=== PATIENT | male | born 1945 | race Native Hawaiian/Other Pacific Islander ===

== ENCOUNTER 2018-03-22 12:37 | Observation (INO) | payer MEDICARE ==
--- NOTE | 2018-03-22 13:33 | C.PDOC ---
History Of Present Illness 72 years old male with PMHx of HTN and Chronic Kidney disease (scheduled to start dialysis soon) presents to ED for complaints of shortness of breath associated with light headedness and generalized weakness that began 1 week ago. Patient states symptoms worsened today which prompted the ED visit. Denies chest pain, palpitations, cough, fever, abdominal pain, nausea, vomiting, or diarrhea. PMD: * Jiaro Alanis Time Seen by Provider: 03/22/18 12:47 Chief Complaint (Nursing): Shortness Of Breath History Per: Patient History/Exam Limitations: no limitations Onset/Duration Of Symptoms: Days (7) Current Symptoms Are (Timing): Still Present Current Respiratory Medications: See Home Med List Associated Symptoms: denies: Fever, Chest Pain Recent travel outside of the [place]: No Past Medical History Reviewed: Historical Data, Nursing Documentation, Vital Signs Vital Signs: Last Vital Signs Temp 97.5 F L 03/22/18 12:55 Pulse 73 03/22/18 12:55 Resp 16 03/22/18 12:55 BP 158/79 H 03/22/18 12:55 Pulse Ox 98 03/22/18 12:55 - Medical History PMH: HTN, End Stage Renal Disease Surgical History: No Surg Hx Family History: States: No Known Family Hx - Social History Hx Alcohol Use: No Hx Substance Use: No - Immunization History Hx Tetanus Toxoid Vaccination: Yes Hx Influenza Vaccination: Yes Hx Pneumococcal Vaccination: Yes Review Of Systems Constitutional: Positive for: Weakness (Generalized ) Cardiovascular: Negative for: Chest Pain, Palpitations Respiratory: Positive for: Shortness of Breath. Negative for: Cough Gastrointestinal: Negative for: Nausea, Vomiting, Abdominal Pain, Diarrhea Skin: Negative for: Rash Neurological: Positive for: Other (Lightheadedness ). Negative for: Weakness, Numbness Physical Exam - Physical Exam Appears: Non-toxic, No Acute Distress, Other (Comfortable) Skin: Normal Color, Warm, Dry, No Rash Head: Atraumatic, Normacephalic Eye(s): bilateral: Normal Inspection, PERRL, EOMI Oral Mucosa: Moist Neck: Normal ROM, Supple Chest: Symmetrical, No Tenderness Cardiovascular: Rhythm Regular Respiratory: Rales (Miled at bases bilaterally ), No Rhonchi, No Wheezing Gastrointestinal/Abdominal: Normal Exam, Soft, No Tenderness Extremity: Normal ROM, Pedal Edema (+1 Pitting edema ) Extremity: Bilateral: Normal ROM Pulses: Left Radial: Normal, Right Radial: Normal Neurological/Psych: Oriented x3, Normal Speech (Able to speak in full sentences ), Other (No focal deficits ) Gait: Steady ED Course And Treatment - Laboratory Results Result Diagrams: 03/22/18 13:35 03/22/18 13:35 Interpretation Of ECG: Normal Sinus Rhythm at 76 bpm. Left [place] Deviation. T- wave inversion in 1 & AVL. No acute ST wave changes O2 Sat by Pulse Oximetry: 98 (RA) Pulse Ox Interpretation: Normal - Other Rad CXR X-Ray: Viewed By Me, Read By Radiologist Interpretation: Date of service: 03/22/2018. PROCEDURE: CHEST RADIOGRAPH, 1 VIEW. HISTORY: SOB. COMPARISON: None available. FINDINGS: LUNGS: The lungs are well inflated and clear. PLEURA: No pneumothorax or pleural effusion. CARDIOVASCULAR: The heart is normal in size. No aortic atherosclerotic calcifications present. OSSEOUS STRUCTURES: Within normal limits for the patient's age. VISUALIZED UPPER ABDOMEN: Normal. OTHER FINDI NGS: None. IMPRESSION: No active pulmonary disease. Progress Note: Administered Lasix. Ordered blood gas, blood work, EKG, CXR, and flu AB swab. Patient is Hypervolemic, will speak to his PMD and admit patient. Disposition - Disposition Forms: [employer] (Tajik) - Scribe Statement The provider has reviewed the documentation as recorded by the Scribe Lela Ruelas All medical record entries made by the Scribe were at my direction and personally dictated by me. I have reviewed the chart and agree that the record accurately reflects my personal performance of the history, physical exam, medical decision making, and the department course for this patient. I have also personally directed, reviewed, and agree with the discharge instructions and disposition.
[2018-03-22 13:44] LABS: VENOUS BLOOD GAS BASE EXCESS -1.7 mmol/L (0.0-2.0); VENOUS BLOOD GAS PCO2 38 mmHg (40-60); VENOUS BLOOD GAS PO2 39 mm/Hg (30-55); VENOUS BLOOD PH 7.39 (7.32-7.43)
--- NOTE | 2018-03-22 13:46 | RAD ---
Date of service: 03/22/2018 PROCEDURE: CHEST RADIOGRAPH, 1 VIEW HISTORY: SOB COMPARISON: None available. FINDINGS: LUNGS: The lungs are well inflated and clear. PLEURA: No pneumothorax or pleural effusion. CARDIOVASCULAR: The heart is normal in size. No aortic atherosclerotic calcifications present. OSSEOUS STRUCTURES: Within normal limits for the patient's age. VISUALIZED UPPER ABDOMEN: Normal. OTHER FINDINGS: None. IMPRESSION: No active pulmonary disease.
[2018-03-22 13:49] LABS: BASO # 0.1 K/uL (0.0-0.2); BASO % 0.9 % (0.0-2.0); EOS # 0.4 K/uL (0.0-0.7); HEMOGLOBIN 9.9 g/dL (12.0-18.0); LYMPH # 1.1 K/uL (1.0-4.3); LYMPH % 15.5 % (20.0-40.0); MEAN CELL VOLUME 88.1 fL (80.0-94.0); MEAN CORPUSCULAR HEMOGLOBIN 29.7 pg (27.0-31.0); MEAN CORPUSCULAR HGB CONC 33.7 g/dL (33.0-37.0); MEAN PLATELET VOLUME 8.5 fL (7.2-11.7); MONO # 0.4 K/uL (0.0-0.8); MONO % 6.1 % (0.0-10.0); NEUT % 71.5 % (50.0-75.0); RBC 3.34 Mil/uL (4.40-5.90); RED CELL DISTRIBUTION WIDTH 14.2 % (11.5-14.5); WHITE BLOOD COUNT 6.9 K/uL (4.8-10.8)
[2018-03-22 14:03] LABS: ALB/GLOB RATIO 1.1 (1.0-2.1); ALBUMIN 3.7 g/dL (3.5-5.0); CALCIUM 8.3 mg/dl (8.6-10.4)
[2018-03-22 14:14] LABS: CK-MB 2.08 ng/mL (0.0-3.38); TROPONIN I 0.038 ng/mL (0.00-0.120)
[2018-03-23] MEDS: Insulin Detemir 100 units/ml Vial (Levemir) SC SCH (10:28)
--- NOTE | 2018-03-23 10:44 | CP.PCM.CON ---
History of Present Illness - History of Present Illness History of Present Illness: I was asked to see patient by Dr Carbajal. Patient seen 03/23/18 1015 Patient is a 72 year old male with chronic renal failure, HTN who presents with dsypnea. Patient developed symptoms one day prior to admission. He felt dsypneic at rest as well as chest discomfort. He has known renal failure and will need dialysis. He denies previous cardiac history Review of Systems - Constitutional Constitutional: absent: As Per HPI, Anorexia, Chills, Daytime Sleepiness, E xcessive Sweating, Fatigue, Fever, Frequent Falls, Headache, Increased Appetite, Lethargy, Malaise, Night Sweats, Snoring, Sleep Apnea, Weight Gain, Weight Loss, Weakness, Other - EENT Eyes: absent: As Per HPI, Blind Spots, Blurred Vision, Change in Vision, Dec reased Night Vision, Diplopia, Discharge, Dry Eye, Exophthalmos, Floaters, Irritation, Itchy Eyes, Loss of Peripheral Vision, Pain, Photophobia, Requires Corrective Lenses, Sees Flashes, Spots in Vision, Tunnel Vision, Other Visual Disturbances, Loss of Vision, Other Ears: absent: As Per HPI, Decreased Hearing, Ear Discharge, Ear Pain, Tinnitus, Abnormal Hearing, Disequilibrium, Dizziness, Other Nose/Mouth/Throat: absent: As Per HPI, Epistaxis, Nasal Congestion, Nasal Discharge, Nasal Obstruction, Nasal Trauma, Nose Pain, Post Nasal Drip, Sinus Pain, Sinus Pressure, Bleeding Gums, Change in Voice, Dental Pain, Dry Mouth, Dysphagia, Halitosis, Hoarsness, Lip Swelling, Mouth Lesions, Mouth Pain, Odynophagia, Sore Throat, Throat Swelling, Tongue Swelling, Facial Pain, Neck Pain, Neck Mass, Other - Cardiovascular Cardiovascular: Dyspnea, Pedal Edema - Respiratory Respiratory: Dyspnea - Gastrointestinal Gastrointestinal: absent: As Per HPI, Abdominal Pain, Belching, Bloating, Change in Bowel Habits, Change in Stool Character, Coffee Ground Emesis, Constipation, Cramping, Diarrhea, Dyspepsia, Dysphagia, Early Satiety, Excessive Flatus, Fecal Incontinence, Heartburn, Hematemesis, Hematochezia, Loose Stools, Melena, Nause a, Odynophagia, Temesmus, Vomiting, Other - Genitourinary Genitourinary: absent: As Per HPI, Change in Urinary Stream, Difficulty Urinating, Dysuria, Flank Pain, Hematuria, Pyuria, Nocturia, Urinary Incontinence, Urinary Frequency, Urinary Hesitance, Urinary Urgency, Voiding Freq/Small Amts, Freq UTI, Hx Renal/Bladder Calculi, Hx /Renal Surgery, Bladder Distension, Other - Musculoskeletal Musculoskeletal: absent: As Per HPI, Abnormal Gait, Arthralgias, Atrophy, Back Pain, Deformity, Joint Swelling, Limited Range of Motion, Loss of Height, Muscle Cramps, Muscle Weakness, Myalgias, Neck Pain, Numbness, Radiating Pain into Limb, Stiffness, Tingling, Other - Integumentary Integumentary: absent: As Per HPI, Acne, Alopecia, Bleeding Lesions, Change in Hair, Change in Nails, Change in Pigmentation, Changing Lesions, Dry Skin, Erythema, Furuncle, Hirsutism, Lesions, New Lesions, Non-Healing Lesions, Photosensitivity, Pruritus, Rash, Skin Pain, Skin Ulcer, Sores, Striae, Swel ling, Unusual Bruising, Wounds, Jaundice, Other - Neurological Neurological: absent: As Per HPI, Abnormal Gait, Abnormal Hearing, Abnormal Movements, Abnormal Speech, Behavioral Changes, Burning Sensations, Confusion, Convulsions, Disequilibrium, Dizziness, Numbness, Focal Weakness, Frequent Falls, Headaches, Lack of Coordination, Loss of Vision, Memory Loss, Paresthesias, Radicular Pain, Restless Legs, Sensory Deficit, Syncope, Tingling, Tremor, Vertigo, Weakness, Other Visual Disturbances, Other - Psychiatric Psychiatric: absent: As Per HPI, Abnormal Sleep Pattern, Anhedonia, Anxiety, Auditory Hallucinations, Behavioral Changes, Change in Appetite, Change in Libido, Confusion, Depression, Difficulty Concentrating, Hallucinations, Homicidal Ideation, Hopelessness, Irritability, Memory Loss, Mood Swings, Panic Attacks, Paranoia, Suicidal Ideation, Visual Hallucinations, Tactile Hallucinations, Other - Endocrine Endocrine: absent: As Per HPI, Change in Body Appearance, Change in Libido, Cold Intolorance, Deepening of Voice, Excessive Sweating, Fatigue, Flushing, Heat Intolorance, Increase in Ring/Shoe/Hat Size, Palpitations, Polydipsia, Polyphagia, Polyuria, Other - Hematologic/Lymphatic Hematologic: absent: As Per HPI, Easy Bleeding, Easy Bruising, Lymphadenopathy, Other Past Patient History - Infectious Disease Hx of Infectious Diseases: None - Past Social History Smoking Status: Former Smoker - CARDIAC Hx Hypertension: Yes - RENAL Type of Dialysis Access: right av shunt - ENDOCRINE/METABOLIC Hx Diabetes Mellitus Type 2: Yes - PSYCHIATRIC Hx Substance Use: No - SURGICAL HISTORY Hx Vascular Access Device: Yes - ANESTHESIA Hx Anesthesia: Yes Hx Anesthesia Reactions: No Hx Malignant Hyperthermia: No Meds Allergies/Adverse Reactions: Allergies Allergy/AdvReac Type Severity Reaction Status Date / Time No Known Allergies Allergy Verified 03/22/18 13:18 - Medications Medications: Current Medications Amlodipine Besylate (Norvasc) 10 mg PO DAILY [facility] Last Admin: 03/23/18 10:27 Dose: 10 mg Carvedilol (Coreg) 6.25 mg PO BID [facility] Last Admin: 03/23/18 10:28 Dose: 6.25 mg Heparin Sodium (Porcine) (Heparin) 5,000 units SC Q12 [facility] Last Admin: 03/23/18 10:28 Dose: 5,000 units Insulin Detemir (Levemir) 20 unit SC DAILY [facility] Last Admin: 03/23/18 10:28 Dose: 20 u Rosuvastatin Calcium (Crestor) 10 mg PO HS [facility] Last Admin: 03/23/18 00:05 Dose: 10 mg Physical Exam - Constitutional Appears: Non-toxic - Head Exam Head Exam: NORMAL INSPECTION - Eye Exam Eye Exam: Normal appearance - ENT Exam ENT Exam: Mucous Membranes Moist - Neck Exam Neck exam: Positive for: Full Rom - Respiratory Exam Respiratory Exam: Decreased Breath Sounds - Cardiovascular Exam Cardiovascular Exam: REGULAR RHYTHM, Systolic Murmur - GI/Abdominal Exam GI & Abdominal Exam: Normal Bowel Sounds - Rectal Exam Rectal Exam: Deferred - Extremities Exam Extremities exam: Positive for: pedal edema - Back Exam Back exam: NORMAL INSPECTION - Neurological Exam Neurological exam: Alert, Oriented x3 - Psychiatric Exam Psychiatric exam: Normal Affect - Skin Skin Exam: Normal Color Results - Vital Signs Recent Vital Signs: Last Vital Signs Temp 98.1 F 03/23/18 07:00 Pulse 84 03/23/18 07:00 Resp 18 03/23/18 07:00 BP 161/79 H 03/23/18 07:00 Pulse Ox 100 03/23/18 07:00 - Labs Result Diagrams: 03/22/18 13:35 03/22/18 13:35 Labs: Laboratory Results - last 24 hr 03/22/18 03/22/18 03/22/18 12:53 13:35 13:35 WBC 6.9 RBC 3.34 L Hgb 9.9 L Hct 29.4 L MCV 88.1 MCH 29.7 MCHC 33.7 RDW 14.2 Plt Count 244 MPV 8.5 Neut % (Auto) 71.5 Lymph % (Auto) 15.5 L [place] % (Auto) 6.1 Eos % (Auto) 6.0 H Baso % (Auto) 0.9 Neut # (Auto) 5.0 Lymph # (Auto) 1.1 [place] # (Auto) 0.4 Eos # (Auto) 0.4 Baso # (Auto) 0.1 pO2 VBG pH VBG pCO2 VBG HCO3 VBG Total CO2 VBG O2 Sat (Calc) VBG Base Excess VBG Potassium Glucose Lactate Sodium 137 Potassium 3.8 Chloride 98 Carbon Dioxide 28 Anion Gap 15 BUN 54 H Creatinine 4.6 H Est GFR ( Amer) 15 Est GFR (Non-Af Amer) 13 POC Glucose (mg/dL) 157 H Random Glucose 157 H Calcium 8.3 L Total Bilirubin 0.3 AST 24 ALT 28 Alkaline Phosphatase 66 Total Creatine Kinase 147 CK-MB (Mass) 2.08 Troponin I 0.0380 NT-Pro-B Natriuret Pep 8210 H Total Protein 7.1 Albumin 3.7 Globulin 3.4 Albumin/Globulin Ratio 1.1 Venous Blood Potassium Influenza Typ A,B (EIA) 03/22/18 03/22/18 03/22/18 13:38 14:01 17:11 WBC RBC Hgb Hct MCV MCH MCHC RDW Plt Count MPV Neut % (Auto) Lymph % (Auto) [place] % (Auto) Eos % (Auto) Baso % (Auto) Neut # (Auto) Lymph # (Auto) [place] # (Auto) Eos # (Auto) Baso # (Auto) pO2 39 VBG pH 7.39 VBG pCO2 38 L VBG HCO3 22.9 VBG Total CO2 24.2 VBG O2 Sat (Calc) 85.4 H VBG Base Excess -1.7 L VBG Potassium 3.2 L Glucose 144 H Lactate 0.8 Sodium 144.0 Potassium Chloride 109.0 H Carbon Dioxide Anion Gap BUN Creatinine Est GFR ( Amer) Est GFR (Non-Af Amer) POC Glucose (mg/dL) 177 H Random Glucose Calcium Total Bilirubin AST ALT Alkaline Phosphatase Total Creatine Kinase CK-MB (Mass) Troponin I NT-Pro-B Natriuret Pep Total Protein Albumin Globulin Albumin/Globulin Ratio Venous Blood Potassium 3.2 L Influenza Typ A,B (EIA) Negative for flu a/b 03/22/18 03/22/18 03/23/18 19:32 20:59 07:10 WBC RBC Hgb Hct MCV MCH MCHC RDW Plt Count MPV Neut % (Auto) Lymph % (Auto) [place] % (Auto) Eos % (Auto) Baso % (Auto) Neut # (Auto) Lymph # (Auto) [place] # (Auto) Eos # (Auto) Baso # (Auto) pO2 VBG pH VBG pCO2 VBG HCO3 VBG Total CO2 VBG O2 Sat (Calc) VBG Base Excess VBG Potassium Glucose Lactate Sodium Potassium Chloride Carbon Dioxide Anion Gap BUN Creatinine Est GFR ( Amer) Est GFR (Non-Af Amer) POC Glucose (mg/dL) 276 H 306 H 210 H Random Glucose Calcium Total Bilirubin AST ALT Alkaline Phosphatase Total Creatine Kinase CK-MB (Mass) Troponin I NT-Pro-B Natriuret Pep Total Protein Albumin Globulin Albumin/Globulin Ratio Venous Blood Potassium Influenza Typ A,B (EIA) - EKG Data EKG Interpreted by: Myself EKG shows normal: Sinus rhythm Assessment & Plan (1) Aortic stenosis Assessment and Plan: patient has physical exam consistent with aortic stenosis. This may contribute to the patient's symptoms. will schedule echocardiogram Status: Acute (2) HTN (hypertension) Assessment and Plan: blood pressure control. avoid afterload reduction Status: Acute
--- NOTE | 2018-03-23 15:29 | CP.PCM.HP ---
History of Present Illness - History of Present Illness History of Present Illness: CC: Shorthness of breath HPI: 72 years old male h/o renal failure, Diabetes, HTN, S/p CVA, seen in ER c/o SOB and chest discomfort. Also c/o cough. No fever. Present on Admission - Present on Admission Any Indicators Present on Admission: Yes History of DVT/PE: No History of Uncontrolled Diabetes: Yes Urinary Catheter: No Decubitus Ulcer Present: No Review of Systems - Review of Systems Systems not reviewed;Unavailable: Respiratory Distress All systems: reviewed and no additional remarkable complaints except (SOB, Chestpain, Tinnitus, Muscle spasm) Past Patient History - Infectious Disease Hx of Infectious Diseases: None - Tetanus Immunizations Tetanus Immunization: Unknown - Past Medical History & Family History Past Medical History?: Yes - Past Social History Smoking Status: Former Smoker - CARDIAC Hx Hypertension: Yes - RENAL Type of Dialysis Access: right av shunt - ENDOCRINE/METABOLIC Hx Diabetes Mellitus Type 2: Yes - PSYCHIATRIC Hx Substance Use: No - SURGICAL HISTORY Hx Vascular Access Device: Yes - ANESTHESIA Hx Anesthesia: Yes Hx Anesthesia Reactions: No Hx Malignant Hyperthermia: No Meds Allergies/Adverse Reactions: Allergies Allergy/AdvReac Type Severity Reaction Status Date / Time No Known Allergies Allergy Verified 03/22/18 13:18 Physical Exam - Constitutional Appears: Chronically Ill - Head Exam Head Exam: NORMAL INSPECTION - Eye Exam Eye Exam: Normal appearance - ENT Exam ENT Exam: Normal Exam - Neck Exam Neck exam: Positive for: Normal Inspection - Respiratory Exam Respiratory Exam: Decreased Breath Sounds - Cardiovascular Exam Cardiovascular Exam: REGULAR RHYTHM, Systolic Murmur - GI/Abdominal Exam GI & Abdominal Exam: Soft - Rectal Exam Rectal Exam: Deferred - Extremities Exam Extremities exam: Negative for: pedal edema - Back Exam Back exam: NORMAL INSPECTION - Neurological Exam Neurological exam: Alert - Psychiatric Exam Psychiatric exam: Anxious - Skin Skin Exam: Dry Results - Vital Signs Recent Vital Signs: Last Vital Signs Temp 98.1 F 03/23/18 07:00 Pulse 84 03/23/18 07:00 Resp 18 03/23/18 07:00 BP 161/79 H 03/23/18 07:00 Pulse Ox 100 03/23/18 07:00 - Labs Result Diagrams: 03/22/18 13:35 03/22/18 13:35 Labs: Laboratory Results - last 24 hr 03/22/18 03/22/18 03/22/18 17:11 19:32 20:59 POC Glucose (mg/dL) 177 H 276 H 306 H 03/23/18 03/23/18 07:10 11:42 POC Glucose (mg/dL) 210 H 302 H Assessment & Plan (1) Dyspnea Status: Acute (2) Diabetes Status: Chronic (3) HTN (hypertension) Status: Chronic (4) CVA, old, hemiparesis Status: Chronic (5) Murmur, cardiac Status: Chronic (6) Anemia Status: Chronic (7) CKD (chronic kidney disease) stage 5, GFR less than 15 ml/min Status: Acute (8) CKD (chronic kidney disease) stage 4, GFR 15-29 ml/min Status: Chronic - Assessment and Plan (Free Text) Assessment: A/P: continue medication. Appreciated Cardiology notes. Renal consult
--- NOTE | 2018-03-23 16:26 | CP.PCM.CON ---
History of Present Illness - History of Present Illness History of Present Illness: pt is seen and examined, full consult is dictated #[id number] Past Patient History - Infectious Disease Hx of Infectious Diseases: None - Tetanus Immunizations Tetanus Immunization: Unknown - Past Medical History & Family History Past Medical History?: Yes - Past Social History Smoking Status: Former Smoker - CARDIAC Hx Hypertension: Yes - RENAL Type of Dialysis Access: right av shunt - ENDOCRINE/METABOLIC Hx Diabetes Mellitus Type 2: Yes - PSYCHIATRIC Hx Substance Use: No - SURGICAL HISTORY Hx Vascular Access Device: Yes - ANESTHESIA Hx Anesthesia: Yes Hx Anesthesia Reactions: No Hx Malignant Hyperthermia: No Meds Allergies/Adverse Reactions: Allergies Allergy/AdvReac Type Severity Reaction Status Date / Time No Known Allergies Allergy Verified 03/22/18 13:18 - Medications Medications: Current Medications Amlodipine Besylate (Norvasc) 10 mg PO DAILY [facility] Last Admin: 03/23/18 10:27 Dose: 10 mg Carvedilol (Coreg) 6.25 mg PO BID [facility] Last Admin: 03/23/18 10:28 Dose: 6.25 mg Diazepam (Valium) 5 mg PO HS PRN PRN Reason: Anxiety Heparin Sodium (Porcine) (Heparin) 5,000 units SC Q12 [facility] Last Admin: 03/23/18 10:28 Dose: 5,000 units Insulin Detemir (Levemir) 20 unit SC DAILY [facility] Last Admin: 03/23/18 10:28 Dose: 20 u Rosuvastatin Calcium (Crestor) 10 mg PO HS [facility] Last Admin: 03/23/18 00:05 Dose: 10 mg Results - Vital Signs Recent Vital Signs: Last Vital Signs Temp 98.1 F 03/23/18 07:00 Pulse 84 03/23/18 07:00 Resp 18 03/23/18 07:00 BP 161/79 H 03/23/18 07:00 Pulse Ox 100 03/23/18 07:00 - Labs Result Diagrams: 03/22/18 13:35 03/22/18 13:35 Labs: Laboratory Results - last 24 hr 03/22/18 03/22/18 03/22/18 17:11 19:32 20:59 POC Glucose (mg/dL) 177 H 276 H 306 H 03/23/18 03/23/18 07:10 11:42 POC Glucose (mg/dL) 210 H 302 H
[2018-03-23] MEDS ORDERED: Aluminum Hydroxide/Magnesium Hydroxide Susp (30 mL) PO ONE (18:22)
[2018-03-23 18:44] VITALS: RESP 20
--- NOTE | 2018-03-24 02:06 | CON ---
DATE: 03/23/2018 RENAL CONSULTATION LOCATION: The patient is located in room 671, bed A. REQUESTED BY: Jairo Carbajal MD REASON FOR CONSULT: CKD V for further evaluation. HISTORY OF PRESENT ILLNESS: Mr. Cisneros is a 72-year-old elderly Citizen Of The [place] male with a past medical history of longstanding hypertension, diabetes, chronic kidney disease, CVA with right-sided weakness, status post right upper extremity AV fistula about few months ago, was admitted through the emergency room with the chief complaints of shortness of breath associated with lightheadedness and generalized weakness and pain in the right shoulder for about few days. Denies any chest pain or palpitation. Denies any fever or cough. Denies any abdominal pain. Denies any nausea, vomiting, or diarrhea. Denies any swelling of the legs. PAST MEDICAL HISTORY: Significant for longstanding hypertension, diabetes, chronic kidney disease stage V, hyperlipidemia, and CVA with right-sided weakness. 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 ALLERGIES: NO KNOWN DRUG ALLERGIES. SOCIAL HISTORY: No smoking at this time, ex-smoker, quit more than 10 years ago. Social alcohol use, once or twice a year, and no drug abuse. PERSONAL HISTORY: He is , and he has a very supportive family. MEDICATIONS: His current medications include as follows: Ambien 5 mg at bedtime, Coreg 6.25 mg p.o. b.i.d., Crestor 10 mg at bedtime, subcutaneously heparin 5000 units every 12 hours, Levemir 20 units subcutaneously daily, Norvasc 10 mg daily, Tylenol 650 mg p.o. t.i.d., and diazepam/Valium 5 mg p.o. at bedtime p.r.n. REVIEW OF SYSTEMS: Significant for shortness of breath and occasional cough and generalized body aches and right shoulder pain. All other review of systems are reviewed and are negative. PHYSICAL EXAMINATION: VITAL SIGNS: As follows: Blood pressure 152/74, pulse 77, respirations 20, temperature 98.3, and saturation 100%. Height 5 feet 2 inches, weight is 160 pounds. GENERAL: Mr. Cisneros is a 72-year-old elderly male, moderately built, moderately nourished, not in acute distress. HEENT: Pupils normal, reactive to light and accommodation. Conjunctivae pink. Sclerae anicteric. Tongue is moist. Trachea is midline. LUNGS: Symmetric on both sides. Bilateral breath sounds present. Clear to auscultation. CARDIOVASCULAR SYSTEM: [place] at the fifth intercostal space and midclavicular line. S1, S2 audible. No murmur or gallop. ABDOMEN: Normal in appearance. Soft, tympanic. No guarding. No rigidity. No hepatosplenomegaly. CENTRAL NERVOUS SYSTEM: The patient is alert, awake, oriented x3. Sensory and motor system is grossly within normal limits. EXTREMITIES: No cyanosis, no clubbing, no edema. The patient has a very slight weakness on the right side. Power 4-5/5 in both her right upper extremity and lower extremity. LABORATORY DATA: Includes as follows: As of 03/22/2018: WBC 6.9, hemoglobin 9.9, hematocrit is 29.4, platelets 244. ABG: PH 7.39, pO2 39, pCO2 38, and bicarb 22.9, saturation 85. Sodium 137, potassium 3.8, chloride 98, CO 28, BUN 54, creatinine 4.6, glucose 157, calcium 8.3. Total bili 0.3, AST 24, ALT 28, alkaline phosphatase 66. CPK 147, CK-MB 2, troponin 0.03, and proBNP 8210, total protein 7, albumin 3.7. Influenza A and B are negative. Chest x-ray, no active disease. ASSESSMENT: In summary, Mr. Cisneros is a 72-year-old elderly Citizen Of [place] male with history of longstanding hypertension, diabetes, hyperlipidemia, congestive heart failure, chronic kidney disease stage V, cerebrovascular accident with right-sided weakness, status post right upper extremity arteriovenous fistula. 1. Chronic kidney disease stage V, most likely secondary to hypertensive nephrosclerosis, cannot rule out underlying diabetic nephropathy. 2. Hypertension. 3. Diabetes. 4. Cerebrovascular accident with right-sided weakness, old, very minimal, status post right upper extremity arteriovenous fistula. 5. Shortness of breath, rule out congestive heart failure, rule out the upper respiratory tract infection symptoms. PLAN: Continue his current medications, and no need for emergency hemodialysis at this time. Advised the patient to do the exercise with right upper extremity for fistula maturation. The patient may need angioplasty. Consider vascular surgery evaluation and Doppler of the right upper extremity, and check phosphorus and PTH intact level and also iron, TIBC, ferritin. Thank you for allowing me to participate in your patient's care. Discussed with the patient's family at bedside. Jack Lopez MD
--- NOTE | 2018-03-24 07:49 | CP.PCM.PN ---
Subjective - Date & Time of Evaluation Date of Evaluation: 03/24/18 Time of Evaluation: 07:35 - Subjective Subjective: patient has less dyspnea. Objective - Vital Signs/Intake and Output Vital Signs (last 24 hours): Temp Pulse Resp BP Pulse Ox 98.0 F 71 20 157/79 H 99 03/24/18 04:00 03/24/18 04:00 03/24/18 04:00 03/24/18 04:00 03/24/18 04:00 Intake and Output: 03/24/18 03/24/18 06:59 18:59 Intake Total 450 Output Total 475 Balance -25 - Medications Medications: Current Medications Acetaminophen (Tylenol 325mg Tab) 650 mg PO TID PRN PRN Reason: Pain, Mild (1-3) Last Admin: 03/23/18 17:49 Dose: 650 mg Amlodipine Besylate (Norvasc) 10 mg PO DAILY [facility] Last Admin: 03/23/18 10:27 Dose: 10 mg Diazepam (Valium) 5 mg PO HS PRN PRN Reason: Anxiety Last Admin: 03/23/18 17:49 Dose: 5 mg Heparin Sodium (Porcine) (Heparin) 5,000 units SC Q12 [facility] Last Admin: 03/23/18 22:30 Dose: 5,000 units Insulin Detemir (Levemir) 20 unit SC DAILY [facility] Last Admin: 03/23/18 10:28 Dose: 20 u Rosuvastatin Calcium (Crestor) 10 mg PO HS [facility] Last Admin: 03/23/18 22:30 Dose: 10 mg Zolpidem Tartrate (Ambien) 5 mg PO HS PRN PRN Reason: Insomnia Last Admin: 03/23/18 22:30 Dose: 5 mg - Labs Labs: 03/22/18 13:35 03/22/18 13:35 - Constitutional Appears: Non-toxic - Head Exam Head Exam: NORMAL INSPECTION - Eye Exam Eye Exam: Normal appearance - ENT Exam ENT Exam: Mucous Membranes Moist - Neck Exam Neck Exam: Full ROM - Respiratory Exam Respiratory Exam: NORMAL BREATHING PATTERN - Cardiovascular Exam Cardiovascular Exam: REGULAR RHYTHM, Murmur Additional comments: crescendo systolic murmur - GI/Abdominal Exam GI & Abdominal Exam: Normal Bowel Sounds - Rectal Exam Rectal Exam: Deferred - Extremities Exam Extremities Exam: Normal Inspection - Back Exam Back Exam: NORMAL INSPECTION - Neurological Exam Neurological Exam: Alert - Psychiatric Exam Psychiatric exam: Normal Affect - Skin Skin Exam: Normal Color Assessment and Plan (1) Aortic stenosis Assessment & Plan: I reviewed the echocardiogram. The left ventriuclar function is preserved. There is moderate aortic valve stenosis. There i no immediate indication for surgery. He is at risk for CAD, and would likely benefit from eventual cardiac catheterization. However I would not recommend cardiac catheterization unless dialysis is performed, as the contrast will cause progressive renal failure. Status: Acute (2) HTN (hypertension) Assessment & Plan: increase Coreg Status: Acute
[2018-03-24] MEDS: Insulin Detemir 100 units/ml Vial (Levemir) SC SCH (10:13)
--- NOTE | 2018-03-24 11:40 | CP.PCM.PN ---
Subjective - Date & Time of Evaluation Date of Evaluation: 03/24/18 Time of Evaluation: 11:37 - Subjective Subjective: S: Feels better. No chest pain, fevre, SOB. s/p cardiac cath 2 years ago [facility] Objective - Vital Signs/Intake and Output Vital Signs (last 24 hours): Temp Pulse Resp BP Pulse Ox 98.1 F 76 20 160/81 H 100 03/24/18 07:00 03/24/18 07:00 03/24/18 07:00 03/24/18 07:00 03/24/18 07:00 Intake and Output: 03/24/18 03/24/18 06:59 18:59 Intake Total 450 Output Total 475 Balance -25 - Medications Medications: Current Medications Acetaminophen (Tylenol 325mg Tab) 650 mg PO TID PRN PRN Reason: Pain, Mild (1-3) Last Admin: 03/23/18 17:49 Dose: 650 mg Amlodipine Besylate (Norvasc) 10 mg PO DAILY [facility] Last Admin: 03/24/18 10:14 Dose: 10 mg Carvedilol (Coreg) 12.5 mg PO BID [facility] Last Admin: 03/24/18 10:14 Dose: 12.5 mg Diazepam (Valium) 5 mg PO HS PRN PRN Reason: Anxiety Last Admin: 03/23/18 17:49 Dose: 5 mg Heparin Sodium (Porcine) (Heparin) 5,000 units SC Q12 [facility] Last Admin: 03/24/18 10:15 Dose: 5,000 units Insulin Detemir (Levemir) 20 unit SC DAILY [facility] Last Admin: 03/24/18 10:13 Dose: 20 u Rosuvastatin Calcium (Crestor) 10 mg PO HS [facility] Last Admin: 03/23/18 22:30 Dose: 10 mg Zolpidem Tartrate (Ambien) 5 mg PO HS PRN PRN Reason: Insomnia Last Admin: 03/23/18 22:30 Dose: 5 mg - Labs Labs: 03/22/18 13:35 03/22/18 13:35 - Constitutional Appears: Chronically Ill - Head Exam Head Exam: NORMAL INSPECTION - Eye Exam Eye Exam: Normal appearance - ENT Exam ENT Exam: Normal Exam - Respiratory Exam Respiratory Exam: NORMAL BREATHING PATTERN - Cardiovascular Exam Cardiovascular Exam: REGULAR RHYTHM, Murmur - GI/Abdominal Exam GI & Abdominal Exam: Soft - Rectal Exam Rectal Exam: Deferred - Extremities Exam Extremities Exam: Tenderness (weakness noted) - Back Exam Back Exam: NORMAL INSPECTION - Neurological Exam Neurological Exam: Awake Assessment and Plan (1) Dyspnea Status: Acute (2) Diabetes Status: Chronic (3) HTN (hypertension) Status: Chronic (4) CVA, old, hemiparesis Status: Chronic (5) Murmur, cardiac Status: Chronic (6) Anemia Status: Chronic (7) CKD (chronic kidney disease) stage 5, GFR less than 15 ml/min Status: Acute (8) CKD (chronic kidney disease) stage 4, GFR 15-29 ml/min Status: Chronic - Assessment and Plan (Free Text) Assessment: A/P: Continue medications. Old chart [facility] requested
--- NOTE | 2018-03-24 17:18 | CP.PCM.PN ---
Subjective - Date & Time of Evaluation Date of Evaluation: 03/24/18 Time of Evaluation: 17:18 - Subjective Subjective: pt is seen and examined, follow up consult is dictated #[id number] Objective - Vital Signs/Intake and Output Vital Signs (last 24 hours): Temp Pulse Resp BP Pulse Ox 98.1 F 77 20 160/81 H 100 03/24/18 07:00 03/24/18 07:45 03/24/18 07:00 03/24/18 07:00 03/24/18 11:45 Intake and Output: 03/24/18 03/24/18 06:59 18:59 Intake Total 450 Output Total 475 1250 Balance -25 -1250 - Medications Medications: Current Medications Acetaminophen (Tylenol 325mg Tab) 650 mg PO TID PRN PRN Reason: Pain, Mild (1-3) Last Admin: 03/23/18 17:49 Dose: 650 mg Amlodipine Besylate (Norvasc) 10 mg PO DAILY [facility] Last Admin: 03/24/18 10:14 Dose: 10 mg Carvedilol (Coreg) 12.5 mg PO BID [facility] Last Admin: 03/24/18 10:14 Dose: 12.5 mg Diazepam (Valium) 5 mg PO HS PRN PRN Reason: Anxiety Last Admin: 03/23/18 17:49 Dose: 5 mg Heparin Sodium (Porcine) (Heparin) 5,000 units SC Q12 [facility] Last Admin: 03/24/18 10:15 Dose: 5,000 units Insulin Detemir (Levemir) 20 unit SC DAILY [facility] Last Admin: 03/24/18 10:13 Dose: 20 u Rosuvastatin Calcium (Crestor) 10 mg PO HS [facility] Last Admin: 03/23/18 22:30 Dose: 10 mg Zolpidem Tartrate (Ambien) 5 mg PO HS PRN PRN Reason: Insomnia Last Admin: 03/23/18 22:30 Dose: 5 mg - Labs Labs: 03/22/18 13:35 03/22/18 13:35
[2018-03-24] MEDS: (Novolog) Insulin Aspart, Recombinant 100 u/ml 10 ml vial SC SCH (21:42)
--- NOTE | 2018-03-24 21:54 | PN ---
DATE: 03/24/2018 LOCATION: Room 671, bed A. REQUESTED BY: Jairo Carbajal MD REASON FOR FOLLOWUP: CKD V for further evaluation. HISTORY OF PRESENT ILLNESS: Mr. Cisneros is a 72-year-old elderly, very pleasant [place] male with a history of longstanding hypertension, diabetes, hyperlipidemia, CVA with right-sided weakness, chronic kidney disease, status post right upper extremity AV fistula placement who was admitted with chief complaints of shortness of breath and right shoulder pain and occasional chest discomfort. Denies any dysuria or frequency. Denies any nausea, vomiting, diarrhea. Denies any swelling of the legs. The patient is feeling much better, not in acute distress at this time. PHYSICAL EXAMINATION: GENERAL: Mr. Cisneros is a 72-year-old elderly male, moderately built, moderately nourished, not in acute distress. VITAL SIGNS: As follows: Blood pressure 155/77, pulse 99, respiration 90, temperature 98.9, saturation 100%. Height 5 feet 2 inches, weight is 160 pounds. HEENT: Pupils normal, reactive to light and accommodation. Conjunctivae pink. Sclerae anicteric. Tongue is moist. Trachea is midline. LUNGS: Symmetric on both sides. Bilateral breath sounds present. Clear to auscultation. CARDIOVASCULAR SYSTEM: [place] at the fifth intercostal space, midclavicular area. S1 and S2 audible. No murmur or gallop. ABDOMEN: Normal in appearance, soft, tympanic. No guarding. No rigidity. No hepatosplenomegaly. CENTRAL NERVOUS SYSTEM: The patient is alert, awake, oriented x3. Sensory and motor system is within normal limits. EXTREMITIES: No cyanosis, no clubbing, no edema. Mild right-sided weakness. Right upper extremity AV fistula with good bruit but still the AV fistula is immature. MEDICATIONS: His current medications include as follows: Ambien 5 mg at bedtime, Coreg 12.5 mg p.o. b.i.d., Crestor 10 mg at p.o. at bedtime, subcu heparin 5000 units every 12 hours, Levemir 20 units subcu daily, Norvasc 10 mg daily, Tylenol 650 mg p.o. t.i.d. and Valium 5 mg p.o. at bedtime. LABORATORY DATA: No new labs are available. Accu-Cheks 170 and 226. ASSESSMENT: In summary, Mr. Cisneros is 72-year-old male, elderly male, moderately built, moderately nourished, with hypertension, diabetes, cerebrovascular accident with right-sided weakness, chronic kidney disease stage V. 1. Chronic kidney disease, V, most likely secondary to diabetic nephropathy, cannot rule out underlying hypertensive nephrosclerosis. 2. Hypertension. 3. Diabetes. 4. Old cerebrovascular accident with right-sided weakness, very mild. PLAN: Continue his current medication, antihypertensive medication. We will check phosphorus, PTH intact level and BMP in a.m. and we will add Nephrocaps 1 tablet p.o. daily and we will follow up with you. Thank you for allowing me to participate in your patient's care. Jack Lopez MD
[2018-03-25 07:55] LABS: ALB/GLOB RATIO 0.9 (1.0-2.1); ALBUMIN 3.1 g/dL (3.5-5.0); CALCIUM 7.8 mg/dl (8.6-10.4)
[2018-03-25] MEDS ORDERED: Multivitamin Vitamin B Complex (Nephro-Vite) Tab PO SCH (08:00)
--- NOTE | 2018-03-25 08:01 | CP.PCM.PN ---
Subjective - Date & Time of Evaluation Date of Evaluation: 03/25/18 Time of Evaluation: 07:40 - Subjective Subjective: Pt feels well; no more sensation fo going to fall vertigo. No more chest pain, no fatigue, no edema; good urine out put Objective - Vital Signs/Intake and Output Vital Signs (last 24 hours): Temp Pulse Resp BP Pulse Ox 98 F 72 20 149/72 95 03/24/18 23:50 03/25/18 01:02 03/24/18 23:50 03/24/18 23:50 03/24/18 23:50 Intake and Output: 03/25/18 03/25/18 06:59 18:59 Output Total 1200 Balance -1200 - Medications Medications: Current Medications Acetaminophen (Tylenol 325mg Tab) 650 mg PO TID PRN PRN Reason: Pain, Mild (1-3) Last Admin: 03/23/18 17:49 Dose: 650 mg Amlodipine Besylate (Norvasc) 10 mg PO DAILY [facility] Last Admin: 03/24/18 10:14 Dose: 10 mg Carvedilol (Coreg) 12.5 mg PO BID [facility] Last Admin: 03/24/18 19:44 Dose: 12.5 mg Diazepam (Valium) 5 mg PO HS PRN PRN Reason: Anxiety Last Admin: 03/23/18 17:49 Dose: 5 mg Heparin Sodium (Porcine) (Heparin) 5,000 units SC Q12 [facility] Last Admin: 03/24/18 21:42 Dose: 5,000 units Insulin Aspart (Novolog) 0 unit SC ACHS [facility]; Protocol Last Admin: 03/24/18 21:42 Dose: 2 units Insulin Detemir (Levemir) 20 unit SC DAILY [facility] Last Admin: 03/24/18 10:13 Dose: 20 u Rosuvastatin Calcium (Crestor) 10 mg PO HS [facility] Last Admin: 03/24/18 21:41 Dose: 10 mg Vitamin B Complex/Vit C/Folic Acid (Nephro-Kimi) 1 tab PO 0800 [facility] Zolpidem Tartrate (Ambien) 5 mg PO HS PRN PRN Reason: Insomnia Last Admin: 03/24/18 21:42 Dose: 5 mg - Labs Labs: 03/22/18 13:35 03/25/18 07:30 - Constitutional Appears: No Acute Distress - Eye Exam Eye Exam: Normal appearance - ENT Exam ENT Exam: Mucous Membranes Moist - Neck Exam Neck Exam: Full ROM. absent: Lymphadenopathy, Normal Inspection, Tenderness - Respiratory Exam Respiratory Exam: Clear to Ausculation Bilateral. absent: Rales, Rhonchi, Wheezes - Cardiovascular Exam Cardiovascular Exam: REGULAR RHYTHM, +S1, +S2. absent: Gallop, JVD - GI/Abdominal Exam GI & Abdominal Exam: Soft. absent: Guarding, Tenderness - Extremities Exam Extremities Exam: Normal Capillary Refill. absent: Calf Tenderness, Joint Swelling, Pedal Edema Assessment and Plan (1) Dyspnea Status: Acute (2) Diabetes Status: Chronic (3) HTN (hypertension) Status: Chronic (4) CVA, old, hemiparesis Status: Chronic (5) Murmur, cardiac Status: Chronic (6) Anemia Status: Chronic (7) CKD (chronic kidney disease) stage 5, GFR less than 15 ml/min Status: Acute (8) CKD (chronic kidney disease) stage 4, GFR 15-29 ml/min Status: Chronic - Assessment and Plan (Free Text) Assessment: Despnea; Dizziness - improve NIDM, HTN, CKD Will discharge if no plan for HD at this time Cont meds/ PT eval for gait stability
[2018-03-25 08:04] LABS: IRON 39 ug/dL (49-181)
[2018-03-25] MEDS: (Novolog) Insulin Aspart, Recombinant 100 u/ml 10 ml vial SC SCH ×2 (08:10→12:02)
[2018-03-25 08:14] LABS: % IRON SATURATION 15 (20-55); TOTAL IRON BINDING CAPACITY 256 ug/dL (250-450)
--- NOTE | 2018-03-25 09:28 | CARD ---
APPROVED REPORT Date of service: 03/23/2018 EXAM: Two-dimensional and M-mode echocardiogram with Doppler and color Doppler. INDICATION Dyspnea Congestive Heart Failure COPD 2D DIMENSIONS IVSd0.8 (0.7-1.1cm)Aortic Root (2D)2.7 (2.0-3.7cm) LVDd4.6 (3.9-5.9cm)LVOT Diameter2.0 (1.8-2.4cm) PWd1.2 (0.7-1.1cm)LVDs3.3 (2.5-4.0cm) FS (%) 29.1 %LVEF (%)55.9 (>50%) IVC0.00 cm M-Mode DIMENSIONS RVDd1.25 (2.1-3.2cm)Left Atrium (MM)4.58 (2.5-4.0cm) IVSd0.45 (0.7-1.1cm)Aortic Root2.67 (2.2-3.7cm) LVDd5.52 (4.0-5.6cm)Aortic Cusp Exc.0.94 (1.5-2.0cm) PWd0.97 (0.7-1.1cm)FS (%) 36 % LVDs3.51 (2.0-3.8cm)TAPSE15.49 cm LVEF (%)60 (>50%) Aortic Valve AoV Peak Xhrqmees204.4cm/sAoV VTI54.6cmAO Peak GR.26mmHg LVOT Peak Wokidkbx920.2cm/sLVOT VTI28.38cmAO Mean GR.14mmHg YUKI (VMAX)1.98ox5TJU (VTI)1.59cm2 Mitral Valve MV E Lywmkevu859.3cm/sMV A Ljzaulzr988.3cm/sE/A ratio1.0 TDI Lateral E' Peak V6.55cm/sMedial E' Peak V4.29cm/sE/Lateral E'26.8 E/Medial E'40.9 Tricuspid Valve TR Peak Mcjyshkw892dz/sTR Peak Gr.75skLcNERM94moJj <Conclusion> Suboptimal study Left ventricle: thickness: normal; size: normal; overall ejection fraction: 50%: diastolic filling pressures: elevated Mitral valve: annulus: normal: leaflets: calcific thickening excursion: normal; no significant trans-mitral gradient: moderateincompetence: left atrium: dilated Aortic valve: leaflets:calcific thickening: excursion: normal; 26mmh peak/12mmHg mean rans-aortic gradient: No significant incompetence: aortic root: normal; AV area 1.5cm2 Right sided Structures: Pulmonary valve: normal; no significant incompetence; Tricuspid valve: normal; no significant incompetence: Intra-cardiac hemodynamics: pulmonary systolic pressures: normal; central venous pressures: normal No pericardial effusion
[2018-03-25] MEDS: Insulin Detemir 100 units/ml Vial (Levemir) SC SCH (09:30)
--- NOTE | 2018-03-25 09:32 | CARD ---
APPROVED REPORT Date of service: 03/22/2018 EKG Measurement Heart [id number] <Conclusion> Normal sinus rhythm Left anterior fascicular block Voltage criteria for left ventricular hypertrophy T wave abnormality, consider lateral ischemia Abnormal ECG
--- NOTE | 2018-03-25 12:53 | CP.PCM.PN ---
Subjective - Date & Time of Evaluation Date of Evaluation: 03/25/18 Time of Evaluation: 12:52 - Subjective Subjective: pt is seen and examined, follow up consult is dictated #[id number] Objective - Vital Signs/Intake and Output Vital Signs (last 24 hours): Temp Pulse Resp BP Pulse Ox 98.0 F 73 20 155/70 H 98 03/25/18 08:58 03/25/18 08:58 03/25/18 08:58 03/25/18 08:58 03/25/18 08:58 Intake and Output: 03/25/18 03/25/18 06:59 18:59 Output Total 1200 Balance -1200 - Medications Medications: Current Medications Acetaminophen (Tylenol 325mg Tab) 650 mg PO TID PRN PRN Reason: Pain, Mild (1-3) Last Admin: 03/23/18 17:49 Dose: 650 mg Amlodipine Besylate (Norvasc) 10 mg PO DAILY [facility] Last Admin: 03/25/18 09:29 Dose: 10 mg Carvedilol (Coreg) 12.5 mg PO BID [facility] Last Admin: 03/25/18 09:29 Dose: 12.5 mg Diazepam (Valium) 5 mg PO HS PRN PRN Reason: Anxiety Last Admin: 03/23/18 17:49 Dose: 5 mg Heparin Sodium (Porcine) (Heparin) 5,000 units SC Q12 [facility] Last Admin: 03/25/18 09:30 Dose: 5,000 units Insulin Aspart (Novolog) 0 unit SC ACHS [facility]; Protocol Last Admin: 03/25/18 12:02 Dose: 2 units Insulin Detemir (Levemir) 20 unit SC DAILY [facility] Last Admin: 03/25/18 09:30 Dose: 20 u Rosuvastatin Calcium (Crestor) 10 mg PO HS [facility] Last Admin: 03/24/18 21:41 Dose: 10 mg Vitamin B Complex/Vit C/Folic Acid (Nephro-Kimi) 1 tab PO 0800 [facility] Last Admin: 03/25/18 08:10 Dose: 1 tab Zolpidem Tartrate (Ambien) 5 mg PO HS PRN PRN Reason: Insomnia Last Admin: 03/24/18 21:42 Dose: 5 mg - Labs Labs: 03/22/18 13:35 03/25/18 07:30
[2018-03-25 16:02] VITALS: BP 150/72; TEMP 98.2
[2018-03-25 16:44] VITALS: PULSE 73; O2SAT 99
--- NOTE | 2018-03-26 03:40 | CON ---
DATE: 03/25/2018 FOLLOWUP RENAL CONSULTATION LOCATION: The patient is located in room 671, bed A. REQUESTED BY: Jairo Carbajal MD REASON FOR FOLLOWUP: Chronic kidney disease stage 5, and shortness of breath. HISTORY OF PRESENT ILLNESS: Mr. Cisneros is a 72-year-old elderly [place] male, very pleasant, with a history of hypertension, diabetes, hyperlipidemia, chronic kidney disease stage 5, CVA with right-sided weakness, who was admitted with shortness of breath, occasional cough, and also right shoulder pain. The patient is feeling much better today. No chest pain. No fever. No cough. No abdominal pain. No nausea, vomiting, or diarrhea. No swelling of the legs. PHYSICAL EXAMINATION: VITAL SIGNS: As follows: Blood pressure 155/70, pulse 73, respirations 20, temperature 98, and saturation 98%. Height 5 feet 2 inches, weight is 160 pounds. GENERAL: Mr. Cisneros is a 72-year-old elderly male, moderately built, moderately nourished, not in distress. HEENT: Pupils normal, reactive to light and accommodation. Conjunctivae pink. Sclerae anicteric. Tongue is moist. Trachea is midline. LUNGS: Symmetric on both sides. Bilateral breath sounds present. Clear to auscultation. CVS: [place] at the fifth intercostal space, midclavicular line. S1, S2 audible. No murmur, no gallop. ABDOMEN: Normal in appearance, soft, tympanitic. No guarding. No rigidity. No hepatosplenomegaly. 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 Sensory and motor system is within normal limits. EXTREMITIES: No cyanosis, no clubbing, no edema. Very mild weakness in the right upper and lower extremities. No change from the previous examination. CURRENT MEDICATIONS: Include: Tylenol, amlodipine 10 mg p.o. daily, Coreg 12.5 mg b.i.d., diazepam which is Valium 5 mg p.o. at bedtime p.r.n., subcu heparin 5000 units every 12 hours, NovoLog per sliding scale, Levemir 20 units subcu daily, Crestor 10 mg at bedtime, Nephro-Kimi one tablet daily, and Ambien 5 mg at bedtime. LABORATORY DATA: Include as follows: As of 03/25/2018; sodium 135, potassium 4.8, chloride 104, CO 22, BUN 65, creatinine 4.5, GFR is 13 mL/minute, glucose 143, calcium 7.8, phosphorus 4.5, magnesium 2.5, iron 39, TIBC 256, iron saturation 15, ferritin 272, total bili 0.3, AST 33, ALT 18, alkaline phosphatase 53, total protein 6.4, albumin is 3.1. ASSESSMENT AND PLAN: In summary, Mr. Cisneros is a 72-year-old elderly [place] male with a history of hypertension, diabetes, hyperlipidemia, cerebrovascular accident with right-sided weakness, chronic kidney disease 5, status post right upper extremity arteriovenous fistula placement, was admitted with shortness of breath. 1. Chronic kidney disease 5, most likely secondary to hypertensive nephrosclerosis, cannot rule out underlying diabetic nephropathy. 2. Hypertension. Blood pressure stable. Continue Norvasc and Coreg. 3. Mild anemia secondary to chronic kidney disease and mild iron deficiency anemia. Continue Nephrocaps. Continue all his current medications and Levemir. The patient can be discharged from the renal standpoint and will be followed as an outpatient as scheduled earlier. Thank you for allowing me to participate in your patient's care. Jack Lopez MD
== END 2018-03-25 16:16 | disposition home or self-care (01) ==
LOC: C.ER 12:37 → C.9E 14:58 → C.6T 17:37
PROVIDERS: ADMIT Internal Medicine; ATTEND Internal Medicine
DX: D63.1 Anemia in chronic kidney disease (principal); E11.21 Type 2 diabetes mellitus with diabetic nephropathy; E11.22 Type 2 diabetes mellitus with diabetic chronic kidney disease; I13.2 Hypertensive heart and chronic kidney disease with heart failure and with stage 5 chronic kidney disease, or end stage renal disease; D50.9 Iron deficiency anemia, unspecified; E78.5 Hyperlipidemia, unspecified; I35.0 Nonrheumatic aortic (valve) stenosis; I50.9 Heart failure, unspecified; I63.9 Cerebral infarction, unspecified; I69.351 Hemiplegia and hemiparesis following cerebral infarction affecting right dominant side; N18.6 End stage renal disease; Z87.891 Personal history of nicotine dependence
CPT/HCPCS: 36415; 71045; 80053; 82550; 82553; 82728; 82803; 82948; 83540; 83550; 83735; 83880; 83970; 84100; 84484; 85025; 87804; 93005; 93306; 96374; 97116; 97162; 99285; G0378; G8978; G8979; J1644; J1940; J2765